=== PATIENT | female | born 1965 | race Caucasian/White ===

== ENCOUNTER 2022-05-14 20:19 | Emergency (ER) | payer MEDICARE, MEDICAID ==
[~2022-05-14] VITALS: Ht 157.5 cm; Wt 175.0 kg
[~2022-05-14 20:19] MED LIST: DIAZ5TAB PO; MECL25TA3 PO; ONDA4TAB6 PO; ONDA8TAB9 PO; PANT40TA39 PO
[2022-05-14 20:40] VITALS: BP 111/77
[2022-05-14 21:08] LABS: BASOPHILS # (AUTO) 0.1 X10'3 (0-0.2); BASOPHILS % (AUTO) 0.7 % (0-1); EOSINOPHILS # (AUTO) 0.2 X10'3 (0-0.9); EOSINOPHILS % (AUTO) 1.8 % (0-6); HEMATOCRIT 44.1 % (35.0-45.0); HEMOGLOBIN 15.2 g/dl (12.0-16.0); LYMPHOCYTES # (AUTO) 2.5 X10'3 (1.1-4.8); LYMPHOCYTES % (AUTO) 23.8 % (21-51); MEAN CORPUSCULAR HEMOGLOBIN 32.7 PG (27.0-31.0); MEAN CORPUSCULAR HGB CONC 34.4 g/dL (33.0-36.5); MEAN CORPUSCULAR VOLUME 95.3 FL (78-98); MEAN PLATELET VOLUME 8.6 FL (7.4-10.4); MONOCYTES # (AUTO) 0.8 X10'3 (0-0.9); MONOCYTES % (AUTO) 7.7 % (2-12); PLATELET COUNT 295 X10'3 (140-440); RED BLOOD COUNT 4.63 X10'6 (4.20-5.60); RED CELL DISTRIBUTION WIDTH 13.5 % (11.5-14.5); WHITE BLOOD COUNT 10.6 X10'3 (4.5-11.0)
[2022-05-14 21:15] LABS: ALANINE AMINOTRANSFERASE 38 U/L (12-78); ALBUMIN 3.7 G/DL (3.4-5.0); ALBUMIN/GLOBULIN RATIO 0.9 (1.1-1.5); ALKALINE PHOSPHATASE 89 IU/L (46-116); ANION GAP 8 (8-16); ASPARTATE AMINO TRANSFERASE 20 U/L (10-37); BILIRUBIN,TOTAL 0.8 MG/DL (0.1-1.0); BLOOD UREA NITROGEN 13 MG/DL (7-18); CALCIUM 9.3 MG/DL (8.5-10.1); CHLORIDE 104 MMOL/L (99-107); CREATININE 0.81 MG/DL (0.40-0.90); GLUCOSE 92 MG/DL (70-104); LIPASE 890 U/L (73-393); SODIUM 140 MMOL/L (135-145); TOTAL CARBON DIOXIDE 28.3 MMOL/L (24-32); TOTAL PROTEIN 7.9 G/DL (6.4-8.2); eGFR 72 ML/MIN
[2022-05-14 21:56] LABS: CLARITY,URINE CLEAR (Clear); COLOR,URINE YELLOW (Yellow); GLUCOSE, URINE NEGATIVE (Neg); KETONES,URINE NEGATIVE (Neg); LEUKOCYTE ESTERASE ,URINE SMALL (Neg); NITRITES, URINE NEGATIVE (Neg); OCCULT BLOOD,URINE NEGATIVE (Neg); PROTEIN,URINE NEGATIVE (Neg); UROBILINOGEN,URINE 0.2 E.U/dL (0.2-1.0)
[2022-05-14 22:06] LABS: UA COLLECTION TYPE CLN CATCH MIDSTREAM
[2022-05-14 22:07] LABS: MUCUS STRANDS MODERATE /LPF (Neg)
[2022-05-14 22:08] LABS: SQUAMOUS EPITHELIAL CELL,UR MODERATE /LPF (FEW); TRANSITIONAL EPI CELLS,URINE FEW /HPF
[2022-05-14 22:09] LABS: BACTERIA,URINE FEW /HPF (Neg); RBC,URINE 0-2 /HPF (0-2)
[2022-05-15] MEDS ORDERED: ondansetron/PF 4mg/2ml inj IV ONE (03:55)
[2022-05-15] MEDS ORDERED: morphine 4 MG/ML inj SYRINge IV ONE (03:55)
[2022-05-15] MEDS ORDERED: normal saline 1000ML IV soln IVB ONE (03:55)
== END 2022-05-15 09:50 | disposition left against medical advice (07) ==
LOC: ER 20:20
DX: K57.90 Diverticulosis of intestine, part unspecified, without perforation or abscess without bleeding (principal); I10 Essential (primary) hypertension; K21.9 Gastro-esophageal reflux disease without esophagitis; F41.9 Anxiety disorder, unspecified; Z88.2 Allergy status to sulfonamides; Z88.8 Allergy status to other drugs, medicaments and biological substances; Z79.899 Other long term (current) drug therapy
CPT/HCPCS: 36415; 74176; 80053; 81001; 83690; 85025; 87088; 99284

== ENCOUNTER 2025-04-20 12:58 | Emergency (ER) | payer MEDICARE, MEDICAID ==
[~2025-04-20] VITALS: Ht 154.9 cm; Wt 86.0 kg
[~2025-04-20 12:58] MED LIST changes: +ALPR0.5T8 PO; +CITA20TA27 PO; -DIAZ5TAB PO; +LANS30CA37 PO; +LISI-643 PO; -MECL25TA3 PO; -ONDA4TAB6 PO; -ONDA8TAB9 PO; -PANT40TA39 PO
[2025-04-20 13:36] LABS: LEUKOCYTE ESTERASE ,URINE NEGATIVE (Neg); NITRITES, URINE NEGATIVE (Neg); OCCULT BLOOD,URINE LARGE (Neg)
[2025-04-20 13:37] LABS: UA COLLECTION TYPE CLN CATCH MIDSTREAM
[2025-04-20 13:41] LABS: MUCUS STRANDS FEW /LPF (Neg); SQUAMOUS EPITHELIAL CELL,UR MANY /LPF (FEW)
[2025-04-20 13:49] LABS: MEAN PLATELET VOLUME 9.4 FL (7.4-10.4); RED CELL DISTRIBUTION WIDTH 13.6 % (11.5-14.5)
[2025-04-20 14:11] LABS: CREATININE 0.73 MG/DL (0.40-0.90); TOTAL CARBON DIOXIDE 26.4 MMOL/L (24-32); eCRCL 60 ML/MIN; eGFR 81 ML/MIN
--- NOTE | 2025-04-20 15:11 | RADIOLOGY REPORT ---
Indication: Hematuria and frequent UTI rule out calculus Technique: CT axial images of the abdomen and pelvis are obtained without contrast. Coronal and sagittal reformats were obtained. Radiation Dose Information: CTDI volume is 33 mGy. Dose-length product is 1637 mGy*cm Comparison: CT CT ABDOMEN PELVIS on DOS: 09/23/23, FINDINGS: There is limited interpretation of the abdomen and pelvis without administration of intravenous contrast. Lung bases demonstrate no pleural effusion. Adrenal glands, spleen, pancreas unremarkable in shape. Cholecystectomy. Liver unremarkable in shape. No hydronephrosis/ nephrolithiasis. Stomach is partially distended. Small bowel loops are normal in caliber. Moderate volume stool in the colon. Normal appendix. Abdominal aortic atherosclerotic disease. Bladder partially distended. No free pelvic fluid. No inguinal lymphadenopathy. [id number] bilateral sacroiliac degenerative joint disease. Antm-[id number] thoracolumbar degenerative disc disease. IMPRESSION: Limited evaluation without contrast. No hydronephrosis/ nephrolithiasis. Atherosclerotic disease. Cholecystectomy. Other findings as described.
[2025-04-20 15:25] VITALS: TEMP 97.9
[2025-04-20] MEDS ORDERED: LACT1CAP60 PO (16:07)
--- NOTE | 2025-04-20 16:08 | Physician Documentation ---
History of Present Illness ~ Chief Complaint: Flank Pain Stated Complaint: URINARY COMPLICATIONS Time Seen by MD: 13:37 OK to notify your PCP?: Yes Primary Medical Doctor: Dr. Munoz Mode of Arrival: POV [facility] PATIENT SENT BY MANN FOR DYSURIA SINCE 02/18 AND PATIENT HAS BEEN ON 5 DIFFERENT ANTIBIOTICS WITH NO RELIEF, PATIENT IS HAVING BILATERAL FLANK PAIN WITH SEVERE PAINFUL URINATION AND IS ON ON CIPRO. DENIES HEMATURIA, HX OF E. COLI OF THE URINE. THE PATIENT SHOWED ME THE PICTURE OF HER URINE THAT SHE HAS BEEN PEEING SOME SEDIMENT IN THE URINE . PATIENT HAS SOME NAUSEA BUT NO VOMITING. SHE IS NOT DIABETIC. SHE IS SCHEDULED TO HAVE FIBROID SURGERY IS April. NO OTHER SYMPTOMS. Medication Reconciliation Allergies: Coded Allergies: ketorolac (Verified Allergy, Severe, 09/19/23) makes her nausea and pass out per pt Sulfa (Sulfonamide Antibiotics) (Verified Allergy, Unknown, RASH/SICK, 09/18/23) iodine (Unverified Allergy, Unknown, 04/24/23) patient reported feeling very sick after receiving it perviously shellfish derived (Unverified Allergy, Unknown, 04/24/23) patient verbalized that she was allergic to shellfish tetracycline (Verified Allergy, Unknown, 04/20/23) acetaminophen (Verified Adverse Reaction, Unknown, SICK, 09/18/23) hydrocodone (Verified Adverse Reaction, Unknown, SICK, 09/18/23) Scheduled Citalopram Hydrobromide (Citalopram HBr), 1 TAB PO DAILY, (Reported) Lactobac Cmb #3/Fos/Pantethine (Probiotic & Acidophilus Cap), 1 CAP PO BIDBD Lansoprazole (Prevacid), 1 CAP PO DAILY, (Reported) Lisinopril (Zestril), 10 MG PO DAILY, (Reported) Scheduled PRN Alprazolam (Alprazolam), 1 TAB PO Q12H PRN for anxiety, (Reported) Past Medical History Past Medical History: Hypertension, Diverticulitis, GERD, Hemorrhoids, Anxiety Past Surgical History: no surgical history Patient History: FH: CHF (congestive heart failure) MOTHER FH: CVA (cerebrovascular accident) MOTHER FH: coronary artery disease FATHER FH: diabetes mellitus Brother Alcohol Use: None Drug Use: none Review of Systems ROS STATED ABOVE IN THE HPI, OTHERWISE ALL SYSTEMS ARE REVIEWED AND NEGATIVE. Physical Exam Vital Signs: Temperature: 97.9, Source: Temporal, Heart Rate: 62, Respiratory Rate: 15, BP: 111/74, Pulse Oximetry: 95, Weight: 86.000 Oxygen Flow Rate: 0 Physical Exam REVIEWED VITAL SIGNS AND THEY ARE WELL WITHIN NORMAL RANGE. CONST: NOT IN ACUTE CARDIOPULMONARY DISTRESS HEAD: ATRAUMATIC EYES: NORMAL CONJUNCTIVA ENT: NORMAL EXTERNAL EARS, NOSE AND MOUTH. MOIST MUCOUS MEMBRANES NECK: FULL RANGE OF MOTION. NO MENINGISMUS RESP: CLEAR TO AUSCULTATION BILATERALLY. NORMAL WORK OF BREATHING CARDIO: REGULAR RATE AND RHYTHM, NO MURMURS. SKIN WELL PERFUSED ABD: SOFT, NON-TENDER, NON-DISTENDED. NORMAL BOWEL SOUNDS. NO REBOUND OR GUARDING SKIN: NO PETECHIAE OR RASHES. WARM AND DRY BACK: NO MIDLINE OR FLANK TENDERNESS EXT: NO CYANOSIS, OR EDEMA NEURO: AWAKE AND ALERT PSYCH: NORMAL MOOD AND AFFECT Progress Results/Orders Results/Orders Orders - KINJAL ALEJANDRA MD Ct Abdomen Pelvis (04/20/25 14:11) Completed Orders - KINJAL ALEJANDRA MD Cbc/Diff (04/20/25 13:07) CMP (04/20/25 13:07) Ua W/Microscopic, Cult If Ind (04/20/25 13:10) Ct Abdomen Pelvis (04/20/25 14:11) Vital Signs 04/20/25 04/20/25 04/20/25 04/20/25 13:04 13:43 14:15 15:25 Temp 97.9 97.9 97.9 Pulse 81 68 62 Resp 18 16 15 B/P (MAP) 166/106 127/74 (91) 111/74 (86) Pulse Ox 95 94 95 O2 Flow Rate 0 0 0 04/20/25 16:16 Pulse 64 Resp 18 B/P (MAP) 144/98 (113) Pulse Ox 97 O2 Flow Rate 0 Laboratory Tests Test 04/20/25 13:10 04/20/25 13:24 Urine Specimen Description Cln catch midstream Urine Color Yellow Urine Clarity Slightly cloudy Urine pH 6.5 Urine Specific Thompson 1.020 Urine Protein Negative Urine Glucose (UA) Negative Urine Ketones Negative Urine Occult Blood Large H Urine Nitrite Negative Urine Bilirubin Negative Urine Urobilinogen 0.2 Urine Leukocyte Esterase Negative Urine RBC 20-50 Urine WBC 0-4 Urine Squamous Epithelial Cells Many Urine Bacteria 1+ Urine Mucus Few Urine Culture Indicated Not ind Volume Urine Centrifuged 10 ml Urine Comment White Blood Count 5.6 Red Blood Count 4.56 Hemoglobin 14.8 Hematocrit 43.9 Mean Corpuscular Volume 96.3 Mean Corpuscular Hemoglobin 32.4 H Mean Corpuscular Hemoglobin Concent 33.7 Red Cell Distribution Width 13.6 Platelet Count 274 Mean Platelet Volume 9.4 Neutrophils (%) (Auto) 49.6 Lymphocytes (%) (Auto) 37.6 Monocytes (%) (Auto) 8.8 Eosinophils (%) (Auto) 3.4 Basophils (%) (Auto) 0.6 Neutrophils # (Auto) 2.8 Lymphocytes # (Auto) 2.1 Monocytes # (Auto) 0.5 Eosinophils # (Auto) 0.2 Basophils # (Auto) 0.0 CBC Comment Sodium Level 142 Potassium Level 4.0 Chloride Level 107 Carbon Dioxide Level 26.4 Anion Gap 9 Blood Urea Nitrogen 8 Creatinine 0.73 Estimated GFR/1.73 m2 81 BUN/Creatinine Ratio 11.0 Glucose Level 113 H Calcium Level 8.7 Total Bilirubin 0.6 Aspartate Amino Transf (AST/SGOT) 21 Alanine Aminotransferase (ALT/SGPT) 32 Alkaline Phosphatase 101 Total Protein 7.5 Albumin 3.4 Globulin 4.1 Albumin/Globulin Ratio 0.8 L Chemistry Comments Medical Decision Making Findings ER Course/Med. Decision Making REVIEW of RECORD(S): Previous medical records here and/or external medical records, such as that provided directly by the patient, by EMS and/or outside medical facilities, if available, were reviewed. COMORBIDITIES BMI 35.8 MDM During the physical examination, the findings suggestive of acute life- threatening condition such as JVD, tracheal deviation, acidotic breathing, noisy stridorous breath sounds, pulses paradoxus, muffled heart sounds, unequal breath sounds, abdominal rigidity and rebound tenderness, focal neurological deficits, cool clammy skin, severe hypotension, severe tachycardia or bradycardia are absent. Patient presenting for chronic urinary tract infection . Vital signs reviewed. Patient is hemodynamically stable and does not meet SIRS criteria. Patient appears nontoxic on exam. Blood test results are well within normal range and urine does not show any signs of UTI. HOWEVER IT DOES HAVE SOME RBC. CT OF THE ABDOMEN AND PELVIS WAS DONE AND DOES NOT SHOW ANY HYDRONEPHROSIS OR HYDROURETER OR UROLITHIASIS. TREATMENT/DISPOSITION: The patient's presentation is most consistent with dysuria symptoms without laboratory evidence of UTI The patient has been taking antibiotics on and off for quite sometimes and at this point of time there is no need to continue any antibiotics (currently she is on ciprofloxacin). It could be fungal UTI but the patient can not take Diflucan. At this point of time I will stop all antibiotics and the patient's should try probiotics and lots of fluid. SHE IS ALREADY TAKING PROBIOTICS ONCE A DAY I INCREASED TO TWICE A DAY. Prior to discharge I independently reviewed the patients past medical history, clinical risk factors, comorbidities, and social determinants of health and diagnostic studies. The patient appears to be a safe discharge home with close outpatient PCP follow-up I had extensive discussion with patient regarding management, disposition and follow up. Potential symptom etiology was discussed, and shared decision making occurred. They will return immediately if symptoms worsen, do not improve, or they have any further concerns. Prior to discharge all questions were addressed. The patient is aware that the purpose of this visit was to screen for an acute medical emergency requiring emergent stabilization. Chronic and occult conditions, including malignancies, have not been ruled out. If patient is unable to arrange follow-up as stated in the discharge instructions and further discussed with the patient directly, or their symptoms worsen/become more concerning, they are to return to the ER for reassessment immediately. Prior to leaving the department, the patient has a plan for discharge, has decision making capacity, and acknowledges an understanding of the verbal and written discharge instructions. SOCIAL DETERMINANTS: Patient demonstrates no obvious challenges to following up as an outpatient although did consider whether patient had any barriers to access care including homelessness, Food insecurity, Mental health, Substance abuse, Disabilities, Limited access to medical care, Difficulty finding transport, Insurance issues, Refusal of care or testing due to cost concerns. MEDICAL SCREENING: I have discussed with the patient the non-definitive nature of the emergency screening exam, diagnosis and the possibility of a variety of conditions which may present in atypically benign fashion and stressed the importance of close follow-up for definitive diagnosis and treatment. We discussed signs and symptoms that should be watched for which might indicate a more serious or new condition that would benefit from emergency reevaluation and the patient has verbalized understanding to this and my other detailed discharge instructions and promises compliance. I have referred him back to his primary physician of course for a more detailed evaluation and more definitive diagnoses. DISCLAIMER: Inadvertent spelling and grammatical errors are likely due to EMR/dictation software use and do not reflect on the overall quality of patient care. Note that the electronic time recorded on this note does not necessarily reflect the actual time of the patient encounter. Departure Disposition: 01 HOME / SELF CARE / HOMELESS Impression: Primary Impression: Dysuria Discharge Instructions: Dysuria Additional Instructions: Thank you for coming to our Emergency Department today. Please stop all antibiotics for now and take probiotics and drink lots of water and follow up with your primary care within a week. Please ask your nurse or provider if you have questions about your care today and do not leave until all your questions have been answered. Please use any medications given as directed and follow-up with your doctor (or the doctor you were referred to) in the next 1-3 days. Your primary care doctor can help to coordinate outpatient specialty care and provide authorization for specialty referral as needed. If you do not have a primary care doctor you may follow up at a [facility]. You may also use motrin and tylenol as needed for fever and/or pain unless instructed otherwise by your provider or nurse. Indications for more urgent follow-up have been discussed, but you may return to the Emergency Department at ANY time for any worrisome or worsening symptoms. [facility] Facilities: [facility] Facilities: [facility]: [facility] [place] Address:[address] [place] [address] [facility]: [place] Address:[address] [place] [id number] [facility]: [facility] Address:[address] [place] [address] [facility] Address:[address] [place] [address] Registration Billing Pharmacy Referrals [facility] Address:[address] [place] [address] Referrals: NO PRIMARY CARE PROVIDER (PCP) Prescriptions Lactobac Cmb #3/Fos/Pantethine (Probiotic & Acidophilus Cap) 300MM-250 Capsule 1 CAP PO BIDBD for 30 Days, #60 CAP 0 Refills Prov: KINJAL ALEJANDRA MD 04/20/25 Signature Scribe Signature: None Attestation: My dictation KINJAL ALEJANDRA MD Apr 20, 2025 16:08
[2025-04-20 16:16] VITALS: BP 144/98; PULSE 64; RESP 18; O2SAT 97
== END 2025-04-20 16:29 | disposition home or self-care (01) ==
LOC: ER 12:59
DX: R30.0 Dysuria (principal); I10 Essential (primary) hypertension; K21.9 Gastro-esophageal reflux disease without esophagitis; F41.9 Anxiety disorder, unspecified; Z87.19 Personal history of other diseases of the digestive system; Z88.2 Allergy status to sulfonamides; Z91.013 Allergy to seafood; Z88.8 Allergy status to other drugs, medicaments and biological substances; Z88.5 Allergy status to narcotic agent; Z88.1 Allergy status to other antibiotic agents; Z79.899 Other long term (current) drug therapy
CPT/HCPCS: 36415; 74176; 80053; 81001; 85025; 99284; J7030